=== PATIENT | male | born 1965 | race Caucasian/White ===

== ENCOUNTER 2017-02-27 19:03 | Emergency (ER) | payer OTHER, MEDICAID ==
[2017-02-27] MEDS ORDERED: NO HOME MEDICATION XX (19:59)
== END 2017-02-27 21:49 ==
LOC: EDMED 19:03
PROC: 2W3DXYZ Immobilization of Left Lower Arm using Other Device (ICD-10-PCS; principal; 2017-02-27)
DX: S66.912A Strain of unspecified muscle, fascia and tendon at wrist and hand level, left hand, initial encounter (principal); W10.9XXA Fall (on) (from) unspecified stairs and steps, initial encounter

== ENCOUNTER 2017-04-03 13:49 | Emergency (ER) | payer MEDICAID ==
[~2017-04-03 13:49] MED LIST: NO HOME MEDICATION XX
== END 2017-04-03 16:48 | disposition left against medical advice (07) ==
LOC: EDMED 13:49
DX: M54.5 Low back pain (principal); M25.571 Pain in right ankle and joints of right foot; I10 Essential (primary) hypertension; Z88.0 Allergy status to penicillin